=== PATIENT | male | born 1965 | race Caucasian/White ===

== ENCOUNTER 2022-01-05 15:47 | Outpatient (REF) | payer OTHER, SELFPAY ==
[2022-01-05 14:32] LABS: Anion Gap 11.1 mmol/L (3-11); BUN 13 mg/dL (7-18); CO2 24.9 mmol/L (21.0-32.0); CREATININE 0.7 mg/dL (0.70-1.30); Calcium 8.7 mg/dL (8.5-10.1); Calculated LDL 105 mg/dL (<100); Chloride 104 mmol/L (98-107); Cholesterol 172 mg/dL (<200); Glucose 144 mg/dL (74-106); HDL Cholesterol 43 mg/dL (40-60); Sodium 140 mmol/L (136-145); Triglyceride 124 mg/dL (<150)
[2022-01-05 14:45] LABS: Uric Acid 5.9 mg/dL (3.5-7.2)
== END 2022-01-05 15:48 | disposition home or self-care (01) ==
LOC: NCHCN 15:47
PROVIDERS: PCP Internal Medicine; Visit Provider Family Medicine
DX: E66.9 Obesity, unspecified (principal); M10.9 Gout, unspecified; Z13.220 Encounter for screening for lipoid disorders; Z00.00 Encounter for general adult medical examination without abnormal findings
CPT/HCPCS: 80048; 80061; 84550

== ENCOUNTER 2023-04-14 14:51 | Outpatient (REF) | payer BC, SELFPAY ==
[2023-04-14 14:54] LABS: ALT 31 U/L (16-63); AST 26 U/L (15-37); Albumin 4.2 g/dL (3.4-5.0); Alkaline Phosphatase 78 U/L (46-116); Anion Gap 7.5 mmol/L (3-11); BUN 19 mg/dL (7-18); Bilirubin, Total 0.7 mg/dL (0.2-1.0); CO2 29.5 mmol/L (21.0-32.0); CREATININE 0.9 mg/dL (0.70-1.30); Calcium 9.7 mg/dL (8.5-10.1); Calculated LDL 130 mg/dL (<100); Chloride 103 mmol/L (98-107); Cholesterol 196 mg/dL (<200); Estimated GFR 98.38 (mL/min/1.73m2); Glucose 112 mg/dL (74-106); HDL Cholesterol 50 mg/dL (40-60); Potassium 4.7 mmol/L (3.5-5.1); Sodium 140 mmol/L (136-145); Total Protein 7.7 g/dL (6.4-8.2); Triglyceride 80 mg/dL (<150)
[2023-04-14 15:03] LABS: Uric Acid 6.8 mg/dL (3.5-7.2)
== END 2023-04-14 14:52 | disposition home or self-care (01) ==
LOC: NCHCN 14:51
PROVIDERS: PCP Internal Medicine; Visit Provider Internal Medicine
DX: Z13.6 Encounter for screening for cardiovascular disorders (principal); M10.9 Gout, unspecified; I10 Essential (primary) hypertension
CPT/HCPCS: 80053; 80061; 84550

== ENCOUNTER 2023-06-10 11:25 | Outpatient (REF) | payer BC, SELFPAY ==
[2023-06-10 14:30] LABS: Anion Gap 5.7 mmol/L (3-11); BUN 18 mg/dL (7-18); CO2 29.3 mmol/L (21.0-32.0); CREATININE 0.8 mg/dL (0.70-1.30); Calcium 9.3 mg/dL (8.5-10.1); Chloride 106 mmol/L (98-107); Estimated GFR 101.95 (mL/min/1.73m2); Glucose 117 mg/dL (74-106); Potassium 4.4 mmol/L (3.5-5.1); Sodium 141 mmol/L (136-145)
== END 2023-06-10 11:26 | disposition home or self-care (01) ==
LOC: NCHCN 11:25
PROVIDERS: PCP Internal Medicine; Visit Provider Internal Medicine
DX: I10 Essential (primary) hypertension (principal)
CPT/HCPCS: 80048

== ENCOUNTER 2024-06-23 11:52 | Outpatient (REF) | payer BC, SELFPAY ==
--- OUTSIDE RECORDS SUMMARY | 2024-06-23 11:53 | XMS_ITS | Data Portability ---
Author Organization [place] - [facility] [place] [address] Assessment No assessment recorded. 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 Not available Not available Not available Annual Wellness Exam 40 2024 01:30P M BEULAH MCNALLY, Not available Not available Not available Lab BMP, serum or plasma 2023 024 [facility] (Registration ), [address] [place] [address] [place], [address], 06/10/2023 10:55:46 hemoglobi n A1C, fingersti ck [address], [address] [place] [address], [phone], 06/14/2023 09:36:51 hemoglobi n A1C, fingersti ck [address], [address] [place] [address], [phone], 10/22/2023 16:24:28 CBC 2023 025 [facility] ([facility]), [address] [place] [address] [place], [address], 06/23/2024 08:12:54 HbA1c (hemoglob in A1c), blood 2023 025 [facility] ([facility]), [address] [place] [address] [place], [address], 06/23/2024 08:12:54 lipid panel, serum 2023 025 [facility] ([facility]), [address] [place] [address] [place], [address], 06/23/2024 10:09:14 CBC [address] Laboratory ([facility]), [address] [place] [address] [place], [address], 06/23/2024 08:12:54 HbA1c (hemoglob in A1c), blood [address] Laboratory ([facility]), [address] [place] [address] [place], [address], 06/23/2024 08:12:54 CMP, serum or plasma [address] Laboratory (Registration ), [address] [place] [address] [place], [address], 06/23/2024 08:12:54 lipid panel, serum [facility]23 [facility] [address] [place] [address] [place], [address], 06/23/2024 10:09:14 Referral None recorded. Procedures None recorded. Surgeries None recorded. Imaging None recorded. Medication Orders None recorded. Patient Targets Encounter Date Encounter Id Patient Goals Patient Target Last Modified By Organization Details Last Modified Time Start bikingReduce simple carbs, sugar in the diet Not available 06/14/2023 09:05:08 Patient Instructions Encounter Date Encounter Id Patient Instructions Last Modified By Organization Details Last Modified Time 04/22/2023 [id number] Switch to whole wheat or whole grain , look for lower sodium. reduce fatty meat, lunch meat and red meat increase vegetables limit portions at night, limit the potatoes, switch to squash more often limit any kind of sweets or processed foods. Try to go for a 10-20 minute walk on a break during your work day call if your BP goes higher than 140/90 most of the time Not available 04/22/2023 16:20:05 06/14/2023 [id number] Wear supportive shoes in the house Start doing some biking 5-10 minutes at a time, bulid up as you are able to Use tylenol 2 extra strength up to three times a day, stop the aleve Try getting out bed if you can't sleep in the middle of the night, try stretching, writing things down, then get back to bed and try again Not available 06/14/2023 09:07:58 10/22/2023 [id number] diet Not available 10/25 11:33:20 exercise Not available 2023 11:33:20 You can take 3 extra strength tylenol in the evening, try to limit aleve Not available 10/22/2023 16:19:38 Reason for Referral None Reported. Results Created Date Observation Date Name Description Value Unit Range Abnormal Flag Note LastModifiedBy Organization Detail LastModifiedTime 04/14/2004/14/2023 uric acid, serum or plasm a uric acid, serum or plasma 6.8 mg/dL 3.5-7. 2 normal Not Available Not Available 12/24/2023 23:21:45 04/14/20 23 04/14/2023 lipid panel , blood cholesterol, total, serum 196 mg/dL <200 Not Available Not Available 12/24/2023 23:21:41 04/14/20 23 04/14/2023 lipid panel , blood HDL 50 mg/dL 40-60 Not Available Not Availa ble 12/24/2023 23:21:41 04/14/20 23 04/14/2023 lipid panel , blood LDL 130 mg/dL <100 high Not Available Not Availa ble 12/24/2023 23:21:41 11/04/14/2023 lipid panel , blood triglyceride , 12H fasting, qn, serum or plasma 80 mg/dL <150 Not Available Not Available 06/2023 23:21:41 04/14/20 23 04/14/2023 gluco se, QN [mass /volu me], blood glucose ser 112 mg/dL 74-106 high Not Available [facility] [address], [place], [address], 12/24/2023 23:21:40 04/14/20 23 04/14/2023 CMP, serum or plasm a albumin, serum or plasma 4.2 g/dL 3.4-5. 0 normal Not Available Not Available 12/24/2023 23:21:26 04/14/20 23 04/14/2023 CMP, serum or plasm a aniongap 7.5 mmol/ L 3-11 normal Not Available Not Available 12/24/19 23:21:26 04/14/20 23 04/14/2023 CMP, serum or plasm a bilirubin, total, serum or plasma 0.7 mg/dL 0.2-1. 0 normal Not Available Not Available 12/24/2023 23:21:26 04/14/20 23 04/14/2023 CMP, serum or plasm a BUN (blood urea nitrogen), serum or plasma 19 mg/dL 7-18 high Not Available Not Available 06/2023 23:21:26 04/14/20 23 04/14/2023 CMP, serum or plasm a calcium, qn, serum or plasma 9.7 mg/dL 8.5-10 .1 normal Not Available Not Available 12/24/2023 23:21:26 04/14/20 23 04/14/2023 CMP, serum or plasm a chloride, serum or plasma 103 mmol/ L 98-107 normal Not Available Not Available 12/24/19 23:21:26 04/14/20 23 04/14/2023 CMP, serum or plasm a CO2, (carbon dioxide), total, serum or plasma 29.5 mmol/ L 21.0-3 2.0 normal Not Available Not Available 12/24/2023 23:21:26 04/14/20 23 04/14/2023 CMP, serum or plasm a creatinine, serum or plasma 0.9 mg/dL 0.70-1 .30 normal Not Available Not Available 12/24/2023 23:21:26 04/14/20 23 04/14/2023 CMP, serum or plasm a eGFR 98.38 (?) mL/mi n/1.7 3m2 mL/min /1.73m 2 Not Available Not Available 12/24/2023 23:21:26 04/14/20 23 04/14/2023 CMP, serum or plasm a potassium, serum or plasma 4.7 mmol/ L 3.5-5. 1 normal Not Available Not Available 12/24/2023 23:21:26 04/14/20 23 04/14/2023 CMP, serum or plasm a protein, total, serum 7.7 g/dL 6.4-8. 2 normal Not Available Not Available 12/24/2023 23:21:26 04/14/20 23 04/14/2023 CMP, serum or plasm a AST/SGOT (aspartate aminotransfe rase), serum or plasma 26 units /L 15-37 normal Not Available Not Available 12/24/19 23:21:26 04/14/20 23 04/14/2023 CMP, serum or plasm a ALT (alanine aminotransfe rase), serum or plasma 31 units /L 16-63 normal Not Available Not Available 12/24/19 23:21:26 04/14/20 23 04/14/2023 CMP, serum or plasm a sodium, serum or plasma 140 mmol/ L 136-14 5 normal Not Available Not Available 12/24/2023 23:21:26 06/10/19 24 06/10/2023 BASIC METAB OLIC PANEL calcium 9.3 mg/dL 8.5-10 .1 normal Not Available [address] [place], [address] 06/10/2023 14:31:50 06/10/19 24 06/10/2023 BASIC METAB OLIC PANEL glucose 117 mg/dL 74-106 high Not Available [facility] [address] [place], [address] 06/10/2023 14:31:50 06/10/19 24 06/10/2023 BASIC METAB OLIC PANEL BUN 18 mg/dL 7-18 normal Not Available [facility] [address] [place], [address] 06/10/2023 14:31:50 06/10/19 24 06/10/2023 BASIC METAB OLIC PANEL creatinine 0.8 mg/dL 0.70-1 .30 normal Not Available [address] [place], [address] 06/10/2023 14:31:50 06/10/19 24 06/10/2023 BASIC METAB OLIC PANEL estimated GFR 101.95 mL/min /1.73m 2 The eGFR is calcu lated from a serum creat inine using the CKD-E PI 2020 equat ion. Other varia bles requi red for the equat ion are gende r and age; this equat ion does not inclu de a race coeff icien t. This equat ion has simil ar overa ll perfo rmanc e to previ ous equat ions excep t value s may diffe r, in parti cular , in patie nts with highe r value s of eGFR and young er-ag ed adult s. Not Available [address] [place], [address] 06/10/2023 14:31:50 06/10/19 24 06/10/2023 BASIC METAB OLIC PANEL sodium 141 mmol/ L 136-14 5 normal Not Available [address] [place], [address] 06/10/2023 14:31:50 06/10/19 24 06/10/2023 BASIC METAB OLIC PANEL potassium 4.4 mmol/ L 3.5-5. 1 normal Not Available [address] [place], [address] 06/10/2023 14:31:50 06/10/19 24 06/10/2023 BASIC METAB OLIC PANEL chloride 106 mmol/ L 98-107 normal Not Available [address] [place], [address] 06/10/2023 14:31:50 06/10/19 24 06/10/2023 BASIC METAB OLIC PANEL CO2 29.3 mmol/ L 21.0-3 2.0 normal Not Available [facility] [address] [facility] [place], [address] 06/10/2023 14:31:50 06/10/19 24 06/10/2023 BASIC METAB OLIC PANEL anion gap 5.7 mmol/ L 3-11 normal Not Available [facility] [address] [facility] [place], [address] 06/10/2023 14:31:50 06/14/19 24 06/14/2023 hemog lobin A1C, finge rstic k HGBA1C 6.3 % <5.7 Not Available [address], [address], 06/14/2023 08:32:48 10/22/19 24 10/22/2023 hemog lobin A1C, finge rstic k hemoglobin A1C 5.7 % <5.7 Not Available [address], [address], 10/22/2023 15:58:14 02/04/20 24 05/05/2021 imagi ng/di agnos tic resul t No observ ation record ed. [email or web address] Not Available 02/03 00:35:26 02/04/20 24 03/26/2020 imagi ng/di agnos tic resul t No observ ation record ed. [email or web address] Not Available 02/03 00:35:30 Result Notes None recorded. Problems Name Problem SNOMED Code Status Onset Date Resolution Date Notes Provider Name and Address Organization Details Recorded Time Seborrhe ic dermatit is 36080985 Active 2003 Problem Code: L21.9; Problem Code Type: ICD-10; MD [address], [place], [address] , [facility] [place] [facility]. 3 10:45:01 Family history of malignan t neoplasm of digestiv e organ 299143671 Active 2013 Problem Code: Z80.0; Problem Code Type: ICD-10; MD [address], [place], [address] , [facility] 3 10:45:01 Syncope and collapse 479200556 Completed 201508/28/2015 Problem Code: R55; Problem Code Type: ICD-10; Not Available [facility] 3 05:25:32 Psychoph ysiologi c insomnia 429312239 Active 2015 Problem Code: F51.04; Problem Code Type: ICD-10; MD [address], [place], [address] , [facility] 3 10:45:01 Effusion of joint of right knee 54372038181 9104 Completed 201502/01/2016 Problem Code: M25.461; Problem Code Type: ICD-10; Not Available [facility] 3 05:25:33 Adult health examinat ion Active 2017 Problem Code: Z00.00; Problem Code Type: ICD-10; MD [address], [place], [address] , [facility] 3 10:45:01 Pain of left hip joint 16701159400 9100 Completed 201711/20/2017 Problem Code: M25.552; Problem Code Type: ICD-10; Not Available [facility] 3 05:25:33 Family history of malignan t neoplasm of prostate 049576430 Active 2017 Problem Code: Z80.42; Problem Code Type: ICD-10; MD [address], [place], [address] , [facility] 3 10:45:01 Gout 30832749 Active 201701/06/20 22 - Comments only - Margarita Peña MD - (podagra ). Last uric acid level mildly elevated , will repeat level today, treat with indometh acin given tendency to have loose stools and wish to avoid worsenin g of this. If uric acid level once again above 7, advised allopuri nol to reduce risk of recurren ce. Also discusse d dietary factors and he agrees to cut back on alcohol and meat intake. Problem Code: M10.9; Problem Code Type: ICD-10; MD [address], [place], [address] , [facility] 3 10:45:01 Idiopath ic osteoart hritis 577657228 Active 2019 Problem Code: M16.12; Problem Code Type: ICD-10; MD Bro[address]ick [address], [facility] [address] , [facility] 3 10:45:01 Obesity 516518325 Active 202101/06/20 22 - Comments only - Margarita Peña MD - Discusse d dietary changes that would help with this. Problem Code: E66.9; Problem Code Type: ICD-10; MD [address], [place], [address] , [facility] 3 10:45:01 Fatigue 21572001 Completed 201704/02/2020 Problem Code: R53.83; Problem Code Type: ICD-10; Not Available [facility] 3 05:25:55 Contact dermatit is 00577840 Completed 200302/17/2023 Problem Code: 692.9; Problem Code Type: ICD-9; Not Available [facility] 3 05:26:00 Hyperten sive disorder 66277620 Active [address], [place], [address] , [facility] 3 16:56:53 Hyperlip idemia 23026262 Active [address], [place], [address] , [facility] 3 19:58:21 [facility] hyper[facility] solomon 99844581 Active 2021 Problem Code: I10; Problem Code Type: ICD-10; Carlene Cruz keturah, [facility] 4 18:19:23 Hypergly cemia 39909853 Completed 202103/15/2023 Problem Code: R73.9; Problem Code Type: ICD-10; Not Available [facility] 4 05:37:36 Elevated blood-pr essure reading without diagnosi s of hyperten solomon 788536061 Completed 202105/04/2023 01/06/20 22 - Comments only - Margarita Peña MD - Will follow-u p for annual exam. Problem Code: R03.0; Problem Code Type: ICD-10; Not Available [facility] 4 05:37:36 Prediabe zev 677080231 Active 2023 BEULAH MCNALLY MD [facility] [address] [place], [place], [address] [facility] 4 08:47:44 Problem Notes None recorded. Procedures Surgical History None recorded. Imaging Results Imaging Date Name Status LastModified by Organiz ation Details LastModified Time 05/05/2021 imaging/diag nostic result completed Information not available 02/04/2024 00:35:26 03/26/2020 imaging/diag nostic result completed Information not available 02/04/2024 00:35:30 Procedure Notes None recorded. Medical Equipment None Reported. Allergies No known drug allergies Medications Name Sig Start Date Stop Date Status Note LastModified by Organization Details LastModified Time losartan 50 mg tablet TAKE 1 TABLET BY MOUTH EVERY DAY active Not Available Not Available No t Available Zithromax 250 mg tablet 1CAP daily 05/31 completed Not Available Not Available Not Available amoxicillin 500 mg tablet Take 4 tablet by mouth single dose 12/31 completed .drx Not Available Not Available Not Available lorazepam 0.5 mg tablet 1 tab po qHS prn 04/02 completed Not Available Not Available Not Available ciprofloxac in 0.3 % eye drops INSTILL 1 DROP IN RIGHT EYE 6 TIMES DAILY OVER WEEKEND AND FOUR TIMES A DAY NEXT WEEK CALL IF WORSENING , NO CLS FOR LONG POSSIBLE 04/22 completed Not Available Not Available Not Available Nizoral 2 % shampoo Shampoo as directed twice weekly 08/21 completed Not Available Not Available Not Available cephalexin 500 mg capsule TAKE ONE CAPSULE BY MOUTH FOUR TIMES A DAY FOR 10 DAYS 04/22 completed Not Available Not Available Not Available indomethaci n 50 mg capsule Take 2 capsule by mouth three times a day with a glass of water for the first two days, then reduce to dosing to twice daily for three days. #24. no RF 06/10 completed Not Available Not Available Not Available Nizoral 2 % topical cream BID 02/27 completed Not Available Not Available Not Available naproxen 500 mg tablet Take 1 tab by mouth twice daily 04/02 completed Not Available Not Available Not Available Vitals Date Recorded Body height Provider Name an d Address Organization Details Last Updated DateTime 04/22/2023 184.404 cm DELMER SHERMAN RN [facility] 04/22/2023 15:42:51 Date Recorded Body mass index (BMI) Body weight Provider Name and Address Organization Details Last Updated DateTime 04/22/2023 33.5 kg/m2 277375.68 g DELMER SHERMAN RN [facility] 04/22/2023 15:47:29 Date Recorded Body temperature Provider Name a nd Address Organization Details Last Updated DateTime 04/22/2023 98.1 [degF] DELMER SHERMAN RN [facility] 04/22/2023 15:47:33 Date Recorded Oxygen saturation Oxygen saturation in Arterial blood by Pulse oximetry Provider Name and Address Organization Details Last Updated DateTime 04/22/2023 96 % 96 % DELMER SHERMAN RN [facility] 04/22/2023 15:47:48 Date Recorded Heart rate Provider Name an d Address Organization Details Last Updated DateTime 04/22/2023 61 /min DELMER SHERMAN RN [facility] 04/22/2023 15:47:51 Date Recorded Body height Provider Name an d Address Organization Details Last Updated DateTime 06/14/2023 184.404 cm DELMER SHERMAN RN [facility] 06/14/2023 08:31:25 Date Recorded Body mass index (BMI) Body weight Provider Name and Address Organization Details Last Updated DateTime 06/14/2023 33.6 kg/m2 178748.28 g DELMER SHERMAN RN [facility] 06/14/2023 08:31:33 Date Recorded Body temperature Provider Name a nd Address Organization Details Last Updated DateTime 06/14/2023 97.5 [degF] DELMER SHERMAN RN [facility] 06/14/2023 08:31:36 Date Recorded Oxygen saturation Oxygen saturation in Arterial blood by Pulse oximetry Provider Name and Address Organization Details Last Updated DateTime 06/14/2023 95 % 95 % DELMER SHERMAN RN [facility] 06/14/2023 08:31:51 Date Recorded Heart rate Provider Name an d Address Organization Details Last Updated DateTime 06/14/2023 62 /min DELMER SHERMAN RN [facility] 06/14/2023 08:31:54 Date Recorded Body height Provider Name an d Address Organization Details Last Updated DateTime 10/22/2023 184.404 cm [facility] 10/22/2023 15:49:23 Date Recorded Body mass index (BMI) Body weight Provider Name and Address Organization Details Last Updated DateTime 10/22/2023 33.8 kg/m2 913999.59 g NATALI POPE RN [facility] 10/22/2023 15:49:41 Date Recorded Body temperature Provider Name a nd Address Organization Details Last Updated DateTime 10/22/2023 97.8 [degF] NATALI POPE RN [facility] 10/22/2023 15:52:57 Date Recorded Oxygen saturation Oxygen saturation in Arterial blood by Pulse oximetry Provider Name and Address Organization Details Last Updated DateTime 10/22/2023 95 % 95 % NATALI POPE RN [facility] 10/22/2023 15:54:26 Date Recorded Heart rate Provider Name an d Address Organization Details Last Updated DateTime 10/22/2023 57 /min [facility] 10/22/2023 15:54:44 Date Recorded Systolic blood pressure Diastolic blood pressure Provider Name and Address Organization Details Last Updated DateTime 04/22/2023 132 mm[Hg] 80 mm[Hg] DELMER SHERMAN RN [facility] 04/22/2023 15:47:23 Date Recorded Systolic blood pressure Diastolic blood pressure Provider Name and Address Organization Details Last Updated DateTime 06/14/2023 138 mm[Hg] 90 mm[Hg] DELMER SHERMAN RN [facility] 06/14/2023 08:31:45 Date Recorded Systolic blood pressure Diastolic blood pressure Provider Name and Address Organization Details Last Updated DateTime 10/22/2023 130 mm[Hg] 100 mm[Hg] NATALI POPE RN [facility] 10/22/2023 15:54:22 Date Recorded Systolic blood pressure Diastolic blood pressure Provider Name and Address Organization Details Last Updated DateTime 10/22/2023 128 mm[Hg] 84 mm[Hg] BEULAH MCNALLY MD [address] [place], [place], [address], [facility] 10/22/2023 16:15:27 Social History Question Answer Notes LastModified by Organizat ion Details LastModified Time Tobacco Smoking Status Never Smoker DELMER SHERMAN RN null, [facility], [facility] 06/14/2023 08:24:08 Are You Currently Employed? Yes Information not available 06/14/2023 What Type Of Diet Are You Following? 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 1-2 Times Per Week Information not available 06/14/2023 Do You Work In Healthcare? No Information not available 06/14/2023 Who Do You Live With? Information not available 06/14/2023 What Was The Date Of Your Most Recent Tobacco Screening? 10/22/2023 Information not available 10/22/2023 How Many Children Do You Have? 4 Information not available 06/14/2023 What Is Your Relationship Status? Information not available 06/14/2023 What Types Of Sporting Activities Do You Participate In? Walking Information not available 06/14/2023 Has Tobacco Cessation Counseling Been Provided? No [email or web address] Information not available 10/22/2023 Do You Have Any Dietary Restrictions? No Information not available 06/14/2023 Do You Or Have You Ever Used Any Other Forms Of Tobacco Or Nicotine? No Information not available 06/14/2023 Sex: Male Functional Status Question Answer Note LastModified by Organizat ion Details LastModified Time What is your exercise level? Occasional Information not available 06/14/2023 Mental Status None recorded. Family History Nothing Reported Notes:*Problem: Mother: tino florence cam 194, healthy Father: 2019 age 77 of prostate cajair. 194, HTN, gluc. intol Sisters: none Brothers: 3, 1 older, 2 younger, all well Grandfather with colon cancer at 65 Children: 4 Family History of: Hypertension: yes Hyperlipidemia: no Coronary heart disease: no Diabetes mellitus: gluc. intol. Breast cancer: no Colorectal cancer: yes,pgf - age 58 Alcoholism: yes Mental illness: no Other: prostate cancer, mgf paternal grandmother with heart disease Medical History No medical history recorded. Immunizations Vaccine Type Date Status Note Provider Nam e and Address Organization Details Recorded Time Td (adult), 2 Lf tetanus toxoid, preservative free, adsorbed 1 completed Not Available [facility] 04/02/2023 06:12:20 Influenza, split virus, quadrivalent, PF 0 completed Not Available [facility] 04/02/2023 06:12:20 SARS-COV-2 (COVID-19) vaccine, UNSPECIFIED 1 completed DELMER SHERMAN RN null, [facility] 04/22/2023 07:12:14 SARS-COV-2 (COVID-19) vaccine, UNSPECIFIED 1 completed DELMER SHERMAN RN null, [facility] 04/22/2023 07:12:27 SARS-COV-2 (COVID-19) vaccine, UNSPECIFIED 1 completed DELMER SHERMAN RN null, [facility] 04/22/2023 07:12:38 zoster recombinant 1 completed DELMER SHERMAN RN null, [facility] 04/22/2023 07:13:08 zoster recombinant 2 completed DELMER SHERMAN RN null, [facility] 04/22/2023 07:13:20 zoster recombinant 1 completed DELMER SHERMAN RN null, [facility] 06/14/2023 06:39:54 zoster recombinant 2 completed DELMER SHERMAN RN null, [facility] 06/14/2023 06:40:05 influenza, unspecified formulation 1 completed VALENTE NUNEZ, [facility] 06/14/2023 06:40:33 Past Encounters Encounter ID Performer Location Encounter Start Date Encounter Closed Date Diagnosis/Indication Diagnosis SNOMED-CT Code Diagnosis ICD10 Code Diagnosis Note [id number] Monica Salcedo [address] [address] 04/14/2023 08:04:55 04/14/2023 13:36:02 Screening for cardiovascular system disease 220424864 Z13.6 Gout 66660064 M10.9 Essential hypertension 12725535 I10 [id number] BEULAH MCNALLY MD [address] [address] 04/22/2023 15:32:32 04/22/2023 16:26:48 Obesity 711569518 E66.9 Prediabetes 892167264 R7 3.03 glucose 112 fasting c/w prediabete s check a1c poc at f/u in 6 mo for monitoring Gout 34921853 M10.9 no recent flares. continue to limit alcohol, red meat. uric acid 6.8 on recent labs. Hypertensive disorder 38 534974 I10 BP improved, close to goal with losartanco ngratulate d on cutting down beerHe will work more on lifestyle changes, limit high sodium foods, processed meat, increase vegetables and exerciseco ntinue home monitoring f/u 6 mo Hyperlipidemia 60832737 E78.5 Discussed recent lipids, which are elevated. CV risk 9%. He prefers to avoid starting a statin. Will work on lifestyle and diet, recheck 1 year [id number] Monica Salcedo [facility] [address] [place] [address] 06/10/2023 08:15:28 06/10/2023 08:43:16 Essential hypertension [id number] I10 [id number] BEULAH MCNALLY MD [facility] [address] [place] [address] 06/14/2023 08:08:06 06/14/2023 09:11:33 Adult health examination [id number] Z00.00 Generally doing well, utd on colon cancer screeningd eclines immunizati ons, does not like needles.no luts. last PSA 5 years ago. will recheck with next routine labs likely in march Hypertensive disorder 38 707092 I10 BP improved, close to goal with losartan although recently a bit higher likely due to aleve which he will stop.congr atulated on cutting out alcoholHe will work more on lifestyle changes, limit high sodium foods, processed meat, increase vegetables and exerciseco ntinue home monitoring f/u in september as scheduled Obesity 219920981 E66.9 Psychophys iologic insomnia 629454851 F51.04 counseled on sleep hygiene. he is also working on limiting stress and reducing his workload. Impaired f asting glycemia 610198604 R73.01 Prediabetes 849516761 R7 3.03 POC a1c 6.3, up from priorgave handout eating for predmincre ase aerobic exercise Gout 28417148 M10.9 no recent flares. continue to limit alcohol, red meat. Hyperlipidemia 92661881 E78.5 recheck lipids in march, work on lifestyle changes. likely will need statin in near future Pain of le ft knee region [id number] 76853 M25.562 no injury, likely underlying OA and overuse.ad vised limit bending and heavy lifting, wear supportive shoes at all timesdecli melissa PT referral, gave handout on home knee exercisess witch aleve to apapstart exercise bikeif not improving over the next month or so, call and we can check and x-ray as a next step. he does not like needles so would not want injection. [id number] BEULAH MCNALLY MD [facility] [address] [place] [address] 10/22/2023 15:42:55 10/22/2023 16:25:34 Hypertensive disorder 31490126 I10 BP is close to goal with losartan. 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 Prediabetes 936670117 R7 3.03 POC a1c improved to 5.7 from 6.3gave handout eating for predmincre ase aerobic exercise Gout 00269465 M10.9 no recent flares. continue to limit alcohol, red meat. Hyperlipidemia 26725369 E78.5 recheck lipids in march, work on lifestyle changes. likely will need statin in near future Pain of le ft knee region [id number] 06561 M25.562 improved [id number] Mini Clancy LPN [facility] [address] [place] [address] 06/23/2024 07:16:51 06/23/2024 08:10:23 Prediabetes 202905647 R73.03 Hyperlipidemia 74975428 E78.5 Health Concerns Section Related Observation LastModified by Organization Detai ls LastModified Time None Recorded Concern Status LastModified by Organization Details LastModified Time None Recorded Advance Directives Directive None Recorded Payers Encounter Date Sequence Insurance Name Policy Number Policy Parker Covered Member ID Parker Member ID Guarantor Name 04/22/2023 1 [place] [employer] [place] [id number] Yan Viera 06/10/2023 1 [place] [employer] [place] [id number] Yan Viera 06/14/2023 1 [place] [employer] [place] [id number] Yan Viera 10/22/2023 1 [place] [employer] [place] [id number] Yan Viera 06/23/2024 1 [place] [employer] [place] [id number] Yan Edmondson Viera Notes Date Note Type Note Provider Name and Address Organization Details Recorded Time 04/22/2023 text/html Pt started losartan a month ago, home readings are averaging low 130s/low 80s now, better than before. No problems with the med.Feeling well. No dizziness, dyspnea or chest pain or edema.Has reduced beer down to about 6 per week, doing well with this.Has not really made many changes in diet or exercise otherwise. He does have lunch meat frequently, sausage or george once a week or so.Not many sweets in his diet, no soda.no gout flares.Weight is stable. BEULAH MCNALLY MD [address], [place], [address], [facility]. 04/22/2023 20:00:11 06/14/2023 text/html Here for annual. He has had a lot of left knee pain x 1.5 weeks, it has been bothering off and on.No fall or twisting or overuse.It hurts later in the day.He does do some heavy lifting. No swelling.This has been an intermittent issue in the past.Hurts going up and down stairs.He does not wear shoes in the house.He takes two aleve in the morning, and also takes tylenol. BP has been a little high this week, 130/85 this morning, it had been 120s-130s/70s-80s. He does sometimes forget losartan 50 mg daily but rarely. He is working on healthier eating, having more fruit,He is cutting down chips. He quit alcohol completely in May, feels good about this.No gout flares. He is gearing up for sugaring, will be walkingHe does have a bike at home. He has difficulty sleeping through the night around 50%, wakes up and can't get back to sleep in the middle of the night some nights when he has a lot on his mind, work stress. He has just one cup of coffee in the morning. MD [address], [place], [address], [facility]. 06/14/2023 09:15:21 10/22/2023 text/html Here for f/u HTN , preDM. He hsa reduced his beer to just on the weekend, 3 beers per night x 2 nights. He noticed he was feeling better stopping alcohol, had lost weight. he has been busy so fell of the biking recently but intends to get back into it. His BP at home is a little high, 128/90 this morning.No headaches.no dyspnea, chest pain, palpitations, dizziness, pedal edema.No gout issues. Knee issue resolved.He still doesn't sleep well, relates to stress with work, also some aches and pains.Aleve helps him sleep better. Tylenol doesn't work as well.Wakes up around 2, has a hard time limited to sleep. Goes to bed 8 -9pm. He skips breakfast, has cold meat for lunch.has pork chops, chicken, potatoes, a vegetable Typically for dinner. MD [address], [place], [address], [facility]. 10/26/2023 11:33:40
--- OUTSIDE RECORDS SUMMARY | 2024-06-23 11:54 | XMS_ITS ---
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 No lucencies are seen in or about the orthopedic hardware. The bones are intact. The soft tissues are unremarkable. Dictated by: VAISHALI TINOCO MD Transcribed by: [facility] [place] [place] 05/05/21/15:00 D 05/05/2021 13:02:15 [id number] Electronically Reviewed and Signed By: MICHELLE TINOCO MD 05/07/21 12:17 Copy for: 185 HEALTH INFORMATION MGMT Social History Type Status Start Date End Date Code Code Syst em Smoking History Never smoker (Never Smoked) [id number] SNOMED CT Sex Male Hospital Discharge Instructions Should you have any questions prior to discharge, please contact a member of your healthcare team. If you have left the hospital and have any questions, please contact your primary care physician. Reason For Referral No Data Found Allergies and Adverse Reactions Allergy Substance Reaction Severity Start Date Concern Status Co de Code System No Known Drug Allergies Moderate Active [id number] SNOMED-CT Plan of Treatment Pre-Op Covid-19 Testing 04/20/2020 PRE-OP COVID-19 TESTING 03/14/2021 Encounters Encounter Diagnosis Start Date Code Code Sys tem Hip joint prosthesis present 05/05/2021 [id number] SNOMED-CT Personal Care Team Section Performer Name Performer Role Active Date Inactive Da te
[2024-06-23 15:11] LABS: HCT 45.5 % (40.0-50.0); HGB 15.8 g/dL (13.5-17.5); MCH 33.3 pg (27.0-33.0); MCHC 34.7 % (32.0-36.0); MCV 96 fL (80-95); MPV 10.4 fL (8.0-11.0); Platelet Count 162 10^3/uL (130-400); RBC 4.74 10^6/uL (4.36-5.78); RDW 12.1 % (11.8-14.1)
[2024-06-23 15:26] LABS: Hemoglobin A1C 5.7 % (<5.7)
[2024-06-23 15:51] LABS: ALT 38 U/L (16-63); AST 23 U/L (15-37); Albumin 4.2 g/dL (3.4-5.0); Alkaline Phosphatase 90 U/L (46-116); Anion Gap 8.1 mmol/L (3-11); BUN 18 mg/dL (7-18); Bilirubin, Total 0.63 mg/dL (0.2-1.0); CO2 26.9 mmol/L (21.0-32.0); CREATININE 0.8 mg/dL (0.70-1.30); Calcium 9.3 mg/dL (8.5-10.1); Calculated LDL 147 mg/dL (<100); Chloride 108 mmol/L (98-107); Cholesterol 208 mg/dL (<200); Estimated GFR 101.32 (mL/min/1.73m2); Glucose 122 mg/dL (74-106); HDL Cholesterol 48 mg/dL (40-60); Potassium 4.5 mmol/L (3.5-5.1); Sodium 143 mmol/L (136-145); Total Protein 7.4 g/dL (6.4-8.2); Triglyceride 66 mg/dL (<150)
== END 2024-06-23 11:53 | disposition home or self-care (01) ==
LOC: NCHCN 11:52
PROVIDERS: PCP Internal Medicine; Visit Provider Internal Medicine
DX: R73.03 Prediabetes (principal); E78.5 Hyperlipidemia, unspecified
CPT/HCPCS: 80053; 80061; 85027; 83036

== ENCOUNTER 2025-02-12 17:37 | Outpatient (REF) | payer BC, SELFPAY ==
[2025-02-13 15:34] LABS: COMMENT (LAB VIEW ONLY) 63.64 mg/dL; Microalb ug/mg Crea 4.2 ug/mg Cr
== END 2025-02-12 17:38 | disposition home or self-care (01) ==
LOC: NCHCN 17:37
PROVIDERS: PCP Internal Medicine; Visit Provider Internal Medicine
DX: I10 Essential (primary) hypertension (principal)
CPT/HCPCS: 82043; 82570